=== PATIENT | female | born 1985 | race Caucasian/White ===

== ENCOUNTER 2018-01-04 15:20 | Emergency (ER) | END 2018-01-04 17:28 | disposition home or self-care (01) ==

== ENCOUNTER 2018-02-26 08:44 | Emergency (ER) | END 2018-02-26 10:43 | disposition home or self-care (01) ==

== ENCOUNTER 2018-02-28 19:25 | Emergency (ER) | END 2018-02-28 23:03 | disposition home or self-care (01) ==